=== PATIENT | female | born 1940 | race Caucasian/White ===

== ENCOUNTER → 2016-12-01 | Outpatient (CLI) | payer MEDICARE, BC ==
--- NOTE | ~2016-12-01 | US85 ---
[facility] A Service of [facility] RADIOLOGY TEXT RESULTS PATIENT: RAQUEL FERNÁNDEZ LOCATION: CNIV : 42 UNIT #: [id number] AGE: [address]: Robson Jackson MD SEX: F ORDER DR: [id number] [facility] [address] [place], [place] [address] [id number] O MR#: [id number] Acc #: [id number] NAME: RAQUEL FERNÁNDEZ : 1940 SEX: F STUDY DATE/TIME: 12/01/2016 13:11 UNIT: CNIV ROOM: STUDY DESCRIPTION: [facility] Unil or [facility] St[facility] Attending Physician: Robson Jackson M.D. Referring Physician: Robson Jackson M.D. Ordering Physician: Robson Jackson M.D. Primary Care Physician: Summer Montalvo M.D. MEDICAL IMAGING REPORT This report is preliminary unless electronic signature is present EXAM Left lower extremity venous duplex. DATE OF EXAM 12/01/2016 HISTORY left lower extremity pain and swelling for 1 week with no known injury. TECHNIQUE Venous ultrasound examination of the left lower extremity was performed using grayscale, spectral Doppler and color flow Doppler imaging. FINDINGS The examination is negative. There is no evidence of left lower extremity deep venous thrombus from the groin to the lower calf. Visualized greater saphenous vein is also patent. IMPRESSION Negative examination. No evidence of left lower extremity DVT. Dictated by... Jordan Simons M.D. THIS IS AN ELECTRONICALLY VERIFIED REPORT Jordan Simons M.D. at 12/02/2016 7:55 AM ITZ/dirk TD: 12/01/2016 18:05 JOB #: [id number] [facility] A Service [facility] RADIOLOGY TEXT RESULTS PATIENT: RAQUEL FERNÁNDEZ LOCATION: CNIV : 41 UNIT #: [id number] AGE: [address]: Robson Jackson MD SEX: F ORDER DR: MEDICAL IMAGING REPORT COPY
== END | disposition home or self-care (01) ==
LOC: CNIV 12:30
DX: M79.662 Pain in left lower leg (principal); M79.89 Other specified soft tissue disorders
CPT/HCPCS: 93971